=== PATIENT | female | born 1970 | race Caucasian/White ===

== ENCOUNTER 2019-06-07 16:13 | Outpatient (CLI) | payer OTHER, SELFPAY ==
--- NOTE | ~2019-06-07 | MM_ITS ---
EXAMINATION: MM screening [facility] BI w josé antonio HISTORY: Screening mammogram TECHNIQUE: Craniocaudal and mediolateral oblique 3-D tomosynthesis images were obtained and synthetic 2-D images were generated. CAD analysis was submitted and interpreted. COMPARISON: 02/25/2017, 07/26/2008 BREAST PARENCHYMAL COMPOSITION: There are scattered areas of fibroglandular density. FINDINGS: There is no evidence of suspicious mass, calcification, or architectural distortion to sugg est malignancy in either breast. There has been no suspicious interval change. IMPRESSION: 1. No mammographic evidence of malignancy. 2. Recommend routine screening mammography in one year. BI-RADS Category 1: Negative Reviewed, dictated and finalized at location A. ING ENGINEER
== END 2019-06-07 16:14 | disposition home or self-care (01) ==
PROVIDERS: PCP Emergency Medicine; Visit Provider Emergency Medicine
DX: Z12.31 Encounter for screening mammogram for malignant neoplasm of breast (principal)
CPT/HCPCS: 77063; 77067

== ENCOUNTER → 2020-09-11 02:04 | Outpatient (CLI) | payer OTHER, SELFPAY ==
[2020-09-11 19:24] LABS: SARS-CoV-2 RNA PCR Negative
== END ==
PROVIDERS: PCP Emergency Medicine; Visit Provider Internal Medicine Gastroenterology
DX: Z01.812 Encounter for preprocedural laboratory examination (principal); Z20.822 Contact with and (suspected) exposure to COVID-19
CPT/HCPCS: C9803; U0003; U0005

== ENCOUNTER 2020-09-14 02:17 | Day surgery (SDC) | payer OTHER, SELFPAY ==
[2020-09-04 09:37] VITALS: BMI 20.5
[2020-09-14 09:47] VITALS: BP 117/75; PULSE 83; RESP 18; TEMP 36.8; O2SAT 99; BMI 20.2
[2020-09-14] MEDS: LACTATED RINGERS 1,000 ML 150 ML IV CONT (10:04)
--- NOTE | 2020-09-14 10:21 | WPDANESEPPF ---
Anes - Initial Pre Proc Eval Procedure: Operation Date: 09/14/20 11:00 Proposed Procedures p Screening Colonoscopy - Randy Sheets MD Date/Time: 09/14/20 10:21 Surgeon: Randy Sheets MD Pre Op Diagnosis: neoplasm screening, family hx colon CA Patient Data Age: 50 Gender: F Height: 5 ft 3 in Weight: 51.9 kg Last Vital Signs Temp 36.8 C 09/14/20 09:47 Pulse 83 09/14/20 09:47 Resp 18 09/14/20 09:47 BP 117/75 09/14/20 09:47 Pulse Ox 99 09/14/20 09:47 Allergies Allergy/AdvReac Type Severity Reaction Status Date / Time No Known Allergies Allergy Mild Verified 09/14/20 09:47 Home Medications Medication Instructions Recorded Confirmed Type sod picosulf 10 mg-magnes 3.5 160 ml PO BID #160 ml 08/20/20 Rx gram-citric 12 gram/160 mL oral solution Patient hx anesthesia problems: none Family hx anesthesia problems: post op nausea/vomiting PMFSH Social History Social History Substance use type: does not use Living arrangements: with family Gender identity (if verbalized by the patient): Female Spiritual care concerns: No Anes - Eval Final PreProcedure Day of Procedure 09/14/20 10:21 Patient weight: normal Heart: regular rate and rhythm Lungs: clear to auscultation Airway: Mallampati scale class II Neurological: alert and oriented Last oral intake: >/= 8 hours ASA classification: I Emergent: no Anesthetic plan: proceed Anesthesia type and monitoring: general GIVS and standard monitoring Informed Consent: The patient's anesthetic plan and its attendant risks and benefits were discussed with the patient/family/POA. Questions were solicited and answers provided to the satisfaction of the patient/family/POA.
--- NOTE | 2020-09-14 11:01 | PM.HPGS ---
History of Present Illness History of Present Illness Consent: Risks, benefits, and alternatives have been discussed and questions answered. Patient agrees to proceed with procedure. Chief complaint: neoplasm screening, family hx colon CA Narrative: Tatyana Chase is a 50 year old female referred for colon cancer screening. She has a strong family history of colon cancer. Her sister was in her early 50s. Also 2 cousins had colon cancer Review of Systems Review of Systems: All systems reviewed & are unremarkable except as noted in HPI and below PMFSH Social History Social History Substance use type: does not use Living arrangements: with family Gender identity (if verbalized by the patient): Female Spiritual care concerns: No Meds Home Medications and Allergies Home Medications Medication Instructions Recorded Confirmed Type sod picosulf 10 mg-magnes 3.5 160 ml PO BID #160 ml 08/20/20 Rx gram-citric 12 gram/160 mL oral solution Allergies Allergy/AdvReac Type Severity Reaction Status Date / Time No Known Allergies Allergy Mild Verified 09/14/20 09:47 Vital Signs Vital Signs - 24 hr 09/14/20 09:47 Temperature 36.8 C Pulse Rate 83 Respiratory Rate 18 Blood Pressure 117/75 Pulse Oximetry 99 Exam Resp: Auscultation: clear to auscultation bilaterally Cardio: Rate: regular rate Rhythm: regular rhythm GI: GI Palp: Yes Soft to palpation and No Tenderness to palpation present (GI) Assessment and Plan Assessment and plan (1) Colon cancer screening: Code(s): Z12.11 - Encounter for screening for malignant neoplasm of colon Status: Acute Assessment and Plan: Colonoscopy with possible biopsy or polypectomy or cautery or injection of substances.
[2020-09-14 11:28] VITALS: BP 92/56; PULSE 77; RESP 18; O2SAT 99
[2020-09-14 11:38] VITALS: BP 108/64; PULSE 78; RESP 16; O2SAT 98
[2020-09-14 11:48] VITALS: BP 114/84; PULSE 72; RESP 16; O2SAT 98
== END 2020-09-14 12:10 | disposition home or self-care (01) ==
PROVIDERS: PCP Internal Medicine; Visit Provider Internal Medicine Gastroenterology
PROC: 0DJD8ZZ Inspection of Lower Intestinal Tract, Via Natural or Artificial Opening Endoscopic (ICD-10-PCS; CPT 45378; principal; 2020-09-14 11:00)
DX: Z12.11 Encounter for screening for malignant neoplasm of colon (principal); Z80.0 Family history of malignant neoplasm of digestive organs
CPT/HCPCS: 45378; J2704; J7120

== ENCOUNTER 2022-09-12 18:21 | Emergency (ER) | payer OTHER, SELFPAY ==
[2022-09-12] VITALS (8 sets, daily range): BP systolic 115–155; BP diastolic 65–135; PULSE 63–86; RESP 14–16; TEMP 37.3; O2SAT 99–100
--- NOTE | ~2022-09-12 | XR_ITS ---
EXAMINATION: XR chest 2V Exam Date/Time: 09/12/2022 18:55 CDT HISTORY: left sided CP Comparison: None available. RESULT: Lines, tubes, and devices: None. Lungs and pleura: Mild senescent/uncinate change, otherwise clear. Cardiomediastinal silhouette: Normal. Other: No acute osseous or upper abdominal finding. IMPRESSION: No acute cardiopulmonary process. Reviewed, dictated and finalized at location K.
--- NOTE | ~2022-09-12 | CT_ITS ---
EXAMINATION: CT brain wo con DATE: 09/12/2022 18:49 INDICATION: head injury . TECHNIQUE: Computed tomography (CT) of the head was performed without intravenous contrast. The mA wa s adjusted according to patient size. Iterative reconstruction technique was employed. The dose-lengt h product was 605.33 mGy-cm. COMPARISON: None. FINDINGS: No acute intracranial hemorrhage or extra-axial fluid collection. No hydrocephalus, mass, or herniation. No acute ischemic infarct. Unremarkable dural venous sinus attenuation. No acute osseous abnormality. The aerated spaces are clear. IMPRESSION: No acute intracranial process. Reviewed, dictated and finalized at location K.
--- NOTE | 2022-09-12 19:00 | ED.GENADULT ---
HPI - General Adult General Chief complaint: Head Injury Stated complaint: head injury in baseball game last night. Time Seen by Provider: 09/12/22 18:32 History of Present Illness HPI narrative: 52-year-old female presented the emergency department for evaluation of left facial and head pain. Patient reports she was playing softball few nights ago and had a collision with first base. Patient states that she is unsure if she had any loss of consciousness. Patient was also having some left upper rib pain. Patient presented to [place] [facility] for evaluation and they stated because she had the head injury they were unable to evaluate her and referred her to the emergency department. No imaging was done at that time. Related Data Home Medications Medication Instructions Recorded Confirmed ascorbic acid (vitamin C) 500 mg mg PO DAILY 09/19/20 10/22/21 capsule Allergies Allergy/AdvReac Type Severity Reaction Status Date / Time No Known Allergies Allergy Mild Verified 09/12/22 18:22 Review of Systems Review of Systems: All systems reviewed & are unremarkable except as noted in HPI and below PMFSH Past Medical History Medical History (Updated 09/12/22 @ 21:59 by Sarthak Ojeda MD) Abnormal Pap smear of cervix 09-17-2020 +hpv rpt pap in 1 year @ [facility] 1986 ? 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 Screening mammogram, encounter for Surgical History Surgical History History of colposcopy with cervical biopsy 08/31/19 benign 09/14/20 wnl History of gynecologic surgery cyrosurgery @ age 16 [place] teeth extracted Family History Family History Father Dementia Grandparent Carcinoma of colon Heart disease Hypertension grandmother Dementia Cerebrovascular accident grandmother Mother Osteoporosis Sibling Carcinoma of colon sister Son Crohn's disease Social History Social History (Updated 10/22/21 @ 15:34 by ROSANGELA Alex) Smoking status: Never smoker Alcohol intake: current Drinks per week: 2 Substance use: never Substance use type: does not use Living arrangements: other Additional living arrangements comments: Occupation/Education: occupation Additional occupation/education comments: professor Gender identity (if verbalized by the patient): Female Sexual Orientation (if Verbalized by the Patient): Straight or Heterosexual Spiritual care concerns: No Exam Narrative: APPEARANCE: Well appearing, no pain, no distress, well-nourished. HEAD: normocephalic, facial contusion at left tenriism. EYES: PERRLA/EOMI, conjunctivae clear. NOSE: Normal no drainage NECK: Supple. No adenopathy, no masses. RESPIRATORY: Airway patent, respirations nonlabored. Clear to auscultation bilaterally, no rales, rhonchi, wheezing. CARDIOVASCULAR: Regular rate and rhythm without murmurs rubs or gallops. ABDOMINAL: Soft, nontender, nondistended, normal bowel sounds MUSCULOSKELETAL: Left anterior chest wall tenderness NEURO: Alert. Cranial nerves II through XII intact. Grossly intact SKIN: Warm, dry. Normal Color Course Course Emergency Course: 52-year-old female presented the ED for evaluation after having some left-sided chest wall pain and a head injury. Head CT was negative for acute intracranial abnormality. Patient does have a left facial hematoma. Chest x-ray showed no acute cardiopulmonary abnormality. Patient was updated the results of the x-ray and CT scan and patient was encouraged to have close follow-up with her primary care physician. Patient was also advised to take Tylenol and ibuprofen for pain control. All question concerns were addressed and patient was comfortable with
== END 2022-09-12 21:05 | disposition home or self-care (01) ==
PROVIDERS: Emergency Provider Emergency Medicine; PCP Internal Medicine
DX: S00.83XA Contusion of other part of head, initial encounter (principal); R07.89 Other chest pain; W51.XXXA Accidental striking against or bumped into by another person, initial encounter; Y93.64 Activity, baseball
CPT/HCPCS: 70450; 71046; 99284

== ENCOUNTER 2023-06-24 15:33 | Outpatient (CLI) | payer OTHER, SELFPAY ==
--- NOTE | ~2023-06-24 | MM_ITS ---
EXAMINATION: MM screening [facility] BI w josé antonio HISTORY: Screening mammogram TECHNIQUE: Craniocaudal and mediolateral oblique 3-D tomosynthesis images were obtained and synthetic 2-D images were generated. CAD analysis was submitted and interpreted. COMPARISON: 06/07/2019, 02/25/2017, 07/26/2008 BREAST PARENCHYMAL COMPOSITION: There are scattered areas of fibroglandular density. FINDINGS: No suspicious mass, calcification, or architectural distortion are identified in either kevyn ast to suggest malignancy. There has been no suspicious interval change. IMPRESSION: 1. No mammographic evidence of malignancy. 2. Recommend routine screening mammography in one year. BI-RADS Category 1: Negative Reviewed, dictated and finalized at location A. LE BEVELER
== END 2023-06-24 15:34 | disposition home or self-care (01) ==
LOC: ANHIMG 15:35
PROVIDERS: PCP Internal Medicine; Visit Provider Obstetrics & Gynecology
DX: Z12.31 Encounter for screening mammogram for malignant neoplasm of breast (principal)
CPT/HCPCS: 77063; 77067

== ENCOUNTER 2024-12-02 14:22 | Outpatient (CLI) | payer OTHER, SELFPAY ==
--- NOTE | ~2024-12-02 | DEXA_ITS ---
Bone Density Report Name: LISS MADRID Age: 54 Sex: Female Ethnicity: White Date of : 1970 Indication: postmenopausal; screening for osteoporosis; height loss; Referring Provider: Cori Solis Study: Bone densitometry was performed. Exam Date: December 02, 2024 Accession number: [id number] Bone Density: Region BMD T-score Z-score Classification AP Spine(L1-L4) 0.719 -3.0 -1.8 Osteoporosis Femoral Neck (Left) 0.668 -1.6 -0.5 Osteopenia Total Hip (Left) 0.809 -1.1 -0.3 Osteopenia Femoral Neck (Right) 0.671 -1.6 -0.5 Osteopenia Total Hip (Right) 0.775 -1.4 -0.6 Osteopenia Femoral Neck Mean 0.670 -1.6 -0.5 Osteopenia Total Hip Mean 0.792 -1.2 -0.5 Osteopenia World Health Organization criteria for BMD impression classify patients as: Normal (T-score at or above -1.0), Osteopenia (T-score between -1.0 and -2.5), or Osteoporosis (T-score at or below -2.5). 10-year Fracture Risk: FRAX not reported because: Some T-score for Spine Total or Hip Total or Femoral Neck at or below -2.5 Clinical Information Provided by Patient: Patient maximum height was 63 Menopause Age: 44 Does not regularly consume dairy products Drinks caffeinated beverages Onset of menses at age 8 Number of children 2 Impression: The patient has osteoporosis, based on the Total Spine T-score. Discussion: INCREASED RISK OF FRACTURE. BONE DENSITY IS UNDESIRABLY LOW AT ONE OR MORE SKELETAL SITES, CONSISTENT WITH POSTMENOPAUSAL OSTEOPOROSIS. This patient's lowest T-score meets the World Health Organization's (WHO) criteria for osteoporosis at one or more sites (T-score -2.5 or below). In untreated patients, the risk of osteoporotic fracture increases approximately two-fold for each 1.0 SD decrease in T-score. Low bone density is not the only risk factor for fracture; also consider factors such as patient's age, frailty or poor health, risk of falling, risk of injury, previous osteoporotic fracture, family history of osteoporosis, cigarette smoking, low body weight, etc. Not everyone with low bone mineral density has osteoporosis; osteomalacia and other metabolic bone disorders should also be considered. Patients who have osteoporosis should be evaluated for specific diseases and conditions (secondary causes) that may cause or contribute to bone loss. The [place] [employer] Endocrinologists (AACE) and National Osteoporosis Foundation (NOF) recommend pharmacologic intervention for all postmenopausal women whose T-score is in this range. The patient should follow a healthful lifestyle (good nutrition with adequate calcium and vitamin D, and appropriate weight-bearing exercise). Follow-Up: Consider a repeat BMD and Vertebral Fracture Assessment (VFA) exam in 2 years or sooner if medically necessary, to reassess this patient's status. Reported by: YO on 12/02/2024 2:41:00 PM. Reviewed, dictated and finalized at location A.
--- OUTSIDE RECORDS SUMMARY | 2024-12-02 14:26 | XMS_ITS | Clinical Summary ---
Author Organization [facility] Address [address] [place] [address] Care Team Providers Care Transport Analyst Name Role Phone Joe Hanson MD Primary Care Provider Allergies No known active allergies Medications No known medications Active Problems No known active problems Surgical History Surgery Date Site/Laterality Comments LASIK Medical History Medical History Date Comments Asthma GERD (gastroesophageal reflu x disease) I have had some heartburn for as long as I can remember. Family History Medical History Relation Name Comments Alzheimer's disease Father Anibal Chase Heart disease Father Anibal Chase Arthritis Mother Jennifer Chase Heart disease Mother Jennifer Chase Hypertension Mother Jennifer Chase Relation Name Status Comments Father Anibal Chase Mother Jennifer Chase Social History Tobacco Use Types Packs/Day Years Used Date Smoking Tobacco: Never Smokeless Tobacco: Never Tobacco Cessation:Counseling Given: Not Answered Personal Safety Answer Date Recorded Getting School Help Needed Not on file 07/23 Comments Unknown Sex and Gender Information Value Date Recorded Sex Assigned at Not on file 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[employer] Gender Identity Not on file Sexual Orientation Not on file Obstetrics History Plan of Treatment Health Maintenance Due Date Last Done Comments Breast Cancer Screening-Mammogram 1968 Cervical Cancer Screening 1968 Colon Cancer Screening-Colonoscopy 1968 Depression Screening 1968 Hepatitis C Screening 1970 DTaP/Tdap/Td Vaccine (1 - Tdap) 01/24/1979 Hepatitis B Screening 01/24/1986 Regular Well Visit/Exam 18-64 01/24/1986 Covid-19 Vaccine (4 - 2023-2 5 season) 2024 05/19/2021, 11/30/2020, 07/19/2020 Influenza Vaccine (#1) 2025 Zoster Vaccine Completed 04/23/2020, 01/30/2020 Pneumococcal vaccine <65 Aged Out No longer eligible based on patient's age to complete this topic [place] [address] [facility] [place] [address] [facility] [address] [place] [address] [address] Care Teams Transport Analyst Relationship Specialty Start Date End Date Joe Hanson MD [address] [address] PCP - General Family Medicine 10/15/18
--- OUTSIDE RECORDS SUMMARY | 2024-12-02 14:26 | XMS_ITS | Referral Summary ---
Author Organization [facility] Address [address] [place] [address] Care Team Providers Care Brick Shader Name Role Phone Joe Hanson MD Primary Care Provider Allergies No known active allergies Medications No known medications Active Problems No known active problems Social History Tobacco Use Types Packs/Day Years Used Date Smoking Tobacco: Never Smokeless Tobacco: Never Tobacco Cessation:Counseling Given: Not Answered Personal Safety Answer Date Recorded Getting School Help Needed Not on file 07/23 Comments Unknown Sex and Gender Information Value Date Recorded Sex Assigned at Not on file 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 [place] [address] [address] Care Teams Brick Shader Relationship Specialty Start Date End Date Joe Hanson MD [address] [place] [address] PCP - General Family Medicine 10/15/18
== END 2024-12-02 14:23 | disposition home or self-care (01) ==
PROVIDERS: PCP Internal Medicine; Visit Provider Nurse Practitioner
DX: Z78.0 Asymptomatic menopausal state (principal); M81.0 Age-related osteoporosis without current pathological fracture; M85.89 Other specified disorders of bone density and structure, multiple sites
CPT/HCPCS: 77080